=== PATIENT | female | born 2000 | race Caucasian/White ===

== ENCOUNTER 2023-10-11 23:36 | Observation (INO) | payer OTHER, SELFPAY ==
[2023-10-11 16:46] VITALS: BP 181/92
[2023-10-11 17:07] LABS: Urine Albumin Negative (Neg - Trace); Urine Bilirubin Negative (Negative); Urine Character Clear (Clear); Urine Color Yellow; Urine Glucose Negative (Negative); Urine Ketone 1+ (Negative); Urine Leukocyte Trace (Negative); Urine Nitrite Negative (Negative); Urine Occult Blood Negative (Negative); Urine Specific Gravity 1.025 (<1.030); Urine Urobilinogen Negative (Neg - 1+)
[2023-10-11 17:14] LABS: % Basophils 0.5 % (0-2); % Eosinophils 0.9 % (0-6); % Immature Granulocytes 0.3 % (0-0.5); % Lymphocytes 28.5 % (20.5-51.1); % Monocytes 4.9 % (1.7-9.3); % Neutrophils 64.9 % (42.2-75.2); Absolute Basophils 0.1 10^3/uL (0-0.2); Absolute Eosinophils 0.1 10^3/uL (0-0.7); Absolute Immature Granulocytes 0.1 10^3/uL (0-0.05); Absolute Lymphocytes 4.3 10^3/uL (1.2-3.4); Absolute Monocytes 0.7 10^3/uL (0.1-0.6); Absolute Neutrophils 9.7 10^3/uL (1.4-6.5); Hematocrit 42.9 % (37.0-47.0); Hemoglobin 14.9 g/dL (12.0-16.0); Mean Corp Hgb Conc. 34.7 g/dL (33.0-37.0); Mean Corpuscular Hgb 30.8 pg (27.0-31.0); Mean Corpuscular Volume 88.6 fL (81.0-99.0); Mean Platelet Volume 9.4 fL (7.4-10.4); Nucleated Red Blood Cells % 0 %; Platelet Count 303 10^3/uL (130-400); Red Blood Cell Count 4.84 10^6/uL (4.20-5.40); Red Cell Dist. Width 12.9 % (11.5-14.5)
[2023-10-11 17:16] LABS: Urine Red Blood Cell 0-2 /HPF (0-2); Urine Squamous Cell >30 /LPF (Few)
[2023-10-11 17:17] LABS: Urine Bacteria Few (Negative)
[2023-10-11 17:19] LABS: HCG, Serum Qualitative Screen Negative
[2023-10-11 17:21] LABS: ALT (SGPT) 17 U/L (0-35); AST (SGOT) 23 U/L (14-36); Albumin 4.8 g/dl (3.5-5.0); Alkaline Phosphatase 78 U/L (38-126); Blood Urea Nitrogen 15 mg/dl (7-17); Calcium 10.1 mg/dl (8.4-10.2); Carbon Dioxide 26 mmol/L (22-30); Chloride 100 mmol/L (98-107); Glucose 85 mg/dl (70-99); Potassium 3.9 mmol/L (3.5-5.1); Sodium 137 mmol/L (135-145); Total Bilirubin 0.6 mg/dl (0.2-1.3); Total Protein 8.1 g/dl (6.3-8.2); eGFR > 60.00
[2023-10-11 17:43] LABS: Lipase 55 U/L (23-300)
[2023-10-11 18:35] VITALS: BMI 42.8
[2023-10-11 18:38] VITALS: BP 153/115
[2023-10-11] MEDS: MOTRIN 400 MG PO (18:41)
--- NOTE | 2023-10-11 18:49 | ED.GENMED ---
History of Present Illness
General
Chief Complaint: Abdominal Pain
Source: patient
Exam Limitations: none
Time Seen by Provider: 10/11/23 17:10
Nursing documentation reviewed up to this point in time: agreed with
Travel History
Have you had any contact with someone who has COVID-19?: No
Do you have any symptoms of coronavirus? Fever > 100 degrees, chills, cough, shortness of breath, sore throat, loss of taste or smell, muscle aches, or headache?: No
History of Present Illness
History of Present Illness:
Patient presents ED secondary to persistent lower abdominal pain, which started when she stood up while she was at work this afternoon. Since then, patient states that pain has been persistent, but worse when standing up. Denies trauma. Denies
fever. Denies difficulty with urination. Denies back pain. Denies previous history of similar symptoms. Patient has an IUD in place, and as such, typically abnormal irregular menstrual cycle. Patient performed home test, which was
negative.
Review of Systems
Review of Systems
Allergies reviewed?: Yes
All Other Systems: ROS reviewed and negative except as documented in HPI and ROS
Constitutional: Reports no symptoms; Denies fever
ABD/GI: Reports abdominal pain; Denies nausea, vomiting or diarrhea
: Reports no symptoms
Musculoskeletal: Reports no symptoms
Skin: Reports no symptoms
Neurological: Reports no symptoms
Phy Exam
Physical Exam
Physical Exam:
Physical Exam
General: no apparent distress, not acutely ill. afebrile
Head: nc/at. eomi
Neck: supple. no meningeal signs.
Heart: s1/s2 regular rate and rhythm, no murmur. equal radial pulses.
Lungs: no acute respiratory distress. clear bilaterally
Abdomen: normal bowel sounds. minimal LLQ tenderness to palpation.
Neuro: alert and oriented. no focal neurological deficits
Skin: no rash
Psychiatric: well kept. interactive and cooperative
Extremities: no edema. no calf tenderness
Course
Orders/Labs/Results
Orders:
Orders
10/11/23 16:50
Test Result ONCE
10/11/23 16:57
Complete Blood Count/With Diff Urgent
Comprehensive Metabolic Panel Urgent
HCG, Serum Qualitative Screen Urgent
Lipase Urgent
Urinalysis Reflex To Culture Urgent
Date Specimen was Collected: 10/11/23
Time Specimen was Collected: 16:50
Urine Microscopic Reflex Cult Urgent
Chlamydia/GC by PCR Urgent
HERNANDO Source: U
Specimen Description:
Source:: URINE
Date Specimen was Collected: 10/11/23
Time Specimen was Collected: 16:50
Comment: Add on per Fidel Noh
10/11/23 18:05
US Pelvis W Transvag Combined Urgent
Comment:
Reason For Exam: left lower quadrant pain
10/11/23 18:11
Ibuprofen [Motrin] 400 mg PO NOW STA
10/11/23 20:45
Acetaminophen [Tylenol] 1,000 mg PO NOW STA
10/11/23 20:46
Add On - Microbiology Urgent
Tests Added?: urine GC/CT
Acetaminophen [Tylenol] 1,000 mg .ROUTE .STK-MED ONE
10/11/23 22:34
CefTRIAXone [Rocephin] 1,000 mg IV NOW STA
10/11/23 22:35
MetroNIDAZOLE 500 MG/100 ML [Flagyl 500 mg] 100 ml IV NOW
10/11/23 22:44
Chlamydia/GC by PCR Urgent
HERNANDO Source: Endo-Cervical
Specimen Description:
Source:: CERVIX
Date Specimen was Collected: 10/11/23
Time Specimen was Collected: 22:37
Wound Culture [Wound/Abscess/Other Culture] Urgent
HERNANDO Source: Skin Scraping
Specimen Description:
Date Specimen was Collected: 10/11/23
Time Specimen was Collected: 22:37
10/11/23 23:03
Doxycycline Hyclate [Vibramycin] 100 mg 0.9% Sodium Chloride 250 ml [Nss] 250 ml IV NOW
10/11/23 23:15
HYDROmorphone [Dilaudid] 1 mg .ROUTE .STK-MED ONE
HYDROmorphone [Dilaudid] 1 mg IV NOW STA
Abnormal Lab Results
10/11/23
16:57
WBC 15.0 H 10^3/uL
(4.8-10.8)
Abs Immat Gran (auto) 0.1 H 10^3/uL
(0-0.05)
Absolute Neuts (auto) 9.7 H 10^3/uL
(1.4-6.5)
Absolute Lymphs (auto) 4.3 H 10^3/uL
(1.2-3.4)
Absolute Monos (auto) 0.7 H 10^3/uL
(0.1-0.6)
Urine Ketones 1+ A
(Negative)
Leukocyte Esterase Rfl Trace A
(Negative)
Urine Bacteria (Reflex) Few A
(Negative)
10/11/23 16:57
10/11/23 16:57
Vital Signs
Initial and Last Documented VS:
Initial Vital Signs
Temp Pulse Resp BP Pulse Ox
98.2 F 95 18 181/92 98
10/11/23 16:46 10/11/23 16:46 10/11/23 16:46 10/11/23 16:46 10/11/23 16:46
Last Documented Vital Signs
Temp Pulse Resp BP Pulse Ox
98.0 F 78 18 138/86 96
10/12/23 04:00 10/12/23 04:00 10/12/23 04:00 10/12/23 04:00 10/11/23 20:51
MDM/Problems Addressed
MDM/Problems Addressed:
Pelvic US report reviewed and discussed with patient.
Pelvic exam: (Violette RN, at bedside) no vaginal discharge, no adnexal tenderness.
Pt reports having tested positive for chlamydia in November 2022, treated, although patient had no symptoms. Patient states that she gets tested for STDs every year routinely.
Pt evaluated by (non morse intercept technician) - will need further evaluation for potential TOA.
*Critical Care Note
Total Time (30-74mins, 75-104mins- exclusive of procedures): Not Applicable
ED Attending Note
-
Portions of this chart may have been created with voice recognition software.� Occasional wrong word or��sound alike� substitutions may have occurred due to the inherent limitations of voice recognition software.
Discharge Plan
Departure
Patient Disposition: Admit
Presentation/result/management discussed w/ accepting MD/DO:
Discharge Problem:
TOA (tubo-ovarian abscess)
Interventions
Interventions:
*Risk Screen - Suicide Last Done: 10/12/23 01:15
*General Assessment Last Done: 10/11/23 16:46
*Neglect/Abuse Screening Last Done: 10/11/23 16:46
ED- Fall Risk Assessment Last Done: 10/11/23 18:35
*ED COVID-19 Vaccine History Last Done: 10/12/23 01:15
*Nursing Disposition Last Done: 10/12/23 00:56
VN-Eaaotd-Gricbxaxch Assessment Last Done: 10/11/23 18:35
Discharge Date and Time
Discharge Date/Time: 10/12/23 00:57
[2023-10-11 20:14] VITALS: BP 145/92
[2023-10-11] MEDS: TYLENOL 1000 MG PO (20:48)
[2023-10-11 22:47] VITALS: BP 150/105
[2023-10-11] MEDS: FLAGYL 500 MG 100 IV (23:03)
[2023-10-11] MEDS: ROCEPHIN 1000 MG IV (23:03)
[2023-10-11] MEDS: DILAUDID 1 MG IV (23:16)
[2023-10-12] VITALS (9 sets, daily range): BP systolic 127–160; BP diastolic 85–102; BMI 42.6
--- NOTE | 2023-10-12 00:07 | HPS.HSE ---
Addendum entered and electronically signed by Sharon Kebede, DO 10/17/23 14:21:
Home meds and allergies inadvertently excluded from original H&P.
Home meds: Wellbutrin 450mg daily
NKDA
Anna Kebede, DO
Addendum entered and electronically signed by Sharon Kebede, DO 10/12/23 01:36:
Hospitalist consult placed for mgmt of untreated CHTN.
Original Note:
Family Physician
-
Family Physician: NOT KNOW UNKNOWN - PT DOES
Chief Complaint
-
lower abdominal pain
History of Present Illness
23yo , LMP [id number], using Mirena IUD for BC, presents to the ER tonight with lower abdominal pain that started earlier while she was at work and became progressively more intense throughout the day. Pain is across the whole lower abdomen,
but worse in the LLQ. It is not so bad when she is sitting still, but is constant when she is moving around. Tylenol and Motrin in the ER haven't helped much. Pt denies f/c, n/v, d/c, abnormal vaginal discharge, abnormal vaginal bleeding (menses
are irregular with Mirena, has had it in place for 5yrs), or urinary sx. Last normal BM was earlier today. She had Chlamydia in November 2022, which was treated.
Pelvic US in the ER showed a left-sided 7cm x 4cm possible hydrosalpinx vs. hematosalpinx vs. other tubular fluid collection adjacent to the left ovary. Labs significant for Leukocytosis.
Medical History
Past Medical History
Past Medical History: Reports HTN (no meds) and Psychiatric (depression/anxiety)
Additional Past Medical History:
Obesity
Past Surgical History: Reports None
Social History
Tobacco: Non-smoker
Alcohol: None
Drug: None
Personal: Single
Employment: Employed
Family History
Family History: Not pertinent
Allergies / Home Medications
Allergies reflects when Allergies were last updated in [employer].
Home Medications with original date entered in [employer]
Allergy/Medication List:
NKDA
Review of Systems
-
History Source: Patient
A 12 point ROS was completed and negative except as noted: Yes
Constitutional: Reports No Symptoms
Respiratory: Reports No Symptoms
Cardiac: Reports No Symptoms
Abdomen/GI: Reports See HPI
: Reports See HPI
Musculoskeletal: Reports No Symptoms
Skin: Reports No Symptoms
Neurological: Reports No Symptoms
Hematologic/Lymphatic: Reports No Symptoms
Psych: Reports Depression (stable on Wellbutrin) and Anxiety (stable on wellbutrin)
Physical Exam
Vital Signs
Vital Signs
Temp Pulse Resp BP Pulse Ox
98.2 F 92 18 150/105 96
10/11/23 16:46 10/11/23 20:15 10/11/23 16:46 10/11/23 22:47 10/11/23 20:51
Physical Exam
General: Well Developed, Well Nourished, No Apparent Distress, Comfortable, Conversant and Obese
HEENT: NormoCephalic
Respiratory: Non Labored Respirations
Breast: Deferred by me
GI: Soft, Non Distended, Normal Bowel Sounds and Tender (+TTP in the LLQ, no r/g)
Rectal: Deferred by Provider
Genito-urinary: Vaginal Discharge ( SSE: NEFG, normal vagina, No blood in vault. scant yellow/white cervical discharge- GC/CT swab obtained. Bimanual: No CMT, uterine or rt adnexal TTP. ?mild left adnexal TTP.) and Other (IUD strings visualized at
the os. Pt was verbally consented for removal of the IUD-- strings were grasped with ring forceps and gentle traction was applied to remove the IUD intact. IUD swabbed for cultures and sent for gross specimen. )
Musculoskeletal: No Edema
Skin: Warm, Dry and Lesions (no ulcers or lesions)
Neuro: Awake, Alert and Oriented
Psych: Calm
Laboratory Results
-
10/11/23 16:57
CBC 15> 14.9 / 42.9 <303K
HCG NEG
Laboratory Results
Total Bilirubin 0.6 mg/dl (0.2-1.3) 10/11/23 16:57
AST 23 U/L (14-36) 10/11/23 16:57
ALT 17 U/L (0-35) 10/11/23 16:57
Alkaline Phosphatase 78 U/L (38-126) 10/11/23 16:57
Lipase 55 U/L (23-300) 10/11/23 16:57
Data Reviewed
-
Critical Care Time (in minutes): 60
Ultrasound: Image Personally Visualized and interpreted, Report Reviewed by me, Discussed with Physician, Discussed with Patient, Discussed with Family and Other
Lab Data: Labs Reviewed by me, Discussed with Physician, Discussed with Patient and Discussed with Family
Impression/Plan
-
IMPRESSION: 23yo with acute onset LLQ pain.
Cannot r/o TOA based on [id number] complex fluid collection in left adnexal region, LLQ pain/TTP and elevated WBC.
Presentation is atypical, however, because she is afebrile and does not have classic CMT, uterine TTP or even significant left adnexal TTP on internal exam. US report does not include TOA or abscess in the differential, but based on patient's h/o
Chlamydia and IUD in place, she is at a higher risk for PID/TOA. It is also possible that the US findings represents a pre-existing hematosalpinx or hydrosalpinx from prior pelvic infection and is not an acute abscess. We discussed erring on the
side of caution and treating with IV antibiotics for at least the next 24hrs, and then likely transitioning to PO antibiotics. We also discussed the possibility of needing surgical removal of the tube if pain persists/worsens and/or if fevers
develop or WBC continues to rise despite IV antibiotics.
Mirena IUD was also removed in light of possible pelvic infection. It was in place for 5yrs anyway so patient was planning on having it replaced.
PLAN:
-Admit to med/surg floor
-IV antibiotics: IV Ceftriaxone 1gm q24hrs, Doxycycline 100mg q12hr, Metronidazole 500mg q12hr (all started in the ER)
-CBC w/ diff in AM
-GC/CT PCR swab pending. If positive, partner(s) will need treatment, as well.
-IUD cultures pending
-Toradol, Tylenol prn pain
-Ambulation encouraged
-Reg diet
-ANTONIA hose for VTE prophylaxis
-Pt will need control readdressed prior to discharge, or at close interval follow-up
I discussed the assessment and diagnosis with the patient's mother on the phone, per the patient's request, and answered all questions to her satisfaction.
Imaging Data
-
Diagnostic Imaging Report
SignedOrder #:[id number]
Exams:� US Pelvis W Transvag Combined
CPT: 09762, 17159
PROCEDURE: US Pelvis W Transvag Combined
CLINICAL INDICATION: Left lower quadrant abdominal and pelvic pain. Nausea. Last menstrual period began 07/29/2023.
TECHNIQUE: A transabdominal and transvaginal ultrasound examination of the pelvis was performed.
COMPARISON: None available.
FINDINGS:
UTERUS: The uterus measures 9.0 x 3.0 x 4.2 cm in size. The endometrium measures 4.7 mm in thickness on the transvaginal images. There is an intrauterine device (IUD) in the endometrial canal. There is a small amount of fluid in the endocervical
canal. There is no sonographic evidence for uterine mass.
RIGHT OVARY: The right ovary measures 4.0 x 3.5 x 4.0 cm in size. There is a 2.5 x 2.2 x 3.1 cm simple cyst in the right ovary. There is blood flow demonstrated within the right ovary on color duplex evaluation and spectral duplex waveform analysis.
LEFT OVARY: The left ovary measures 3.5 x 2.2 x 5.0 cm in size and is only seen on the transabdominal images. There are small follicles in the left ovary. There is blood flow demonstrated within the left ovary on color duplex evaluation and spectral
duplex waveform analysis.
There is a tubular-shaped fluid collection in the left adnexal region measuring 7.3 x 4.0 x 7.0 cm in size. The fluid contains internal echoes suggesting complexity (possibly blood products). This appears to be separate from the left ovary.
IMPRESSION:
1. � 7.3 cm tubular-shaped complex fluid collection in the left adnexa region which appears separate from the left ovary. Diagnostic possibilities are (1) complex hemorrhagic fluid from a ruptured ovarian cyst, (2) a hydrosalpinx or hematosalpinx,
or (3) peritoneal fluid of other etiology.
2. � 3.1 cm simple cyst in the right ovary.
3. � IUD in the endometrial canal.
Electronically signed by Spike Ramsey MD 10/11/2023 8:43 PM
Dictated By: Spike Ramsey MD.
Dictated Date & Time: 10/11/232025
Signed/Co-Signer By: Spike Ramsey MD /
Signed/Co-Signer Date & Time: 10/11/232042 /
Transcribed by: Spike Ramsey
Printed Date and Time:��@
cc:
[2023-10-12] MEDS: VIBRAMYCIN 260 MG IV ×2 (01:37→12:06)
--- NOTE | 2023-10-12 01:41 | CON.HOSP ---
Family Physician
-
Family Physician: NOT KNOW UNKNOWN - PT DOES
Chief Complaint
-
OBGYN consultt to hospitalist for HTN control
History of Present Illness
23F No significant PMHx pw acute lower abdominal pain at work. it is unremeitting pain worse with standing.
ICD in place.
Self test home pregnacy test was NEG.
Medical History
Past Medical History
Past Medical History: Reports Other (vaguse HX HTN )
Past Surgical History: Reports None
Social History
Tobacco: Non-smoker
Alcohol: None
Drug: None
Personal: Single
Family History
Family History: Hypertension (runs in the family. Both parents has HTN ) and Other
Allergies / Home Medications
Allergies reflects when Allergies were last updated in [employer].
Home Medications with original date entered in [employer]
Allergy/Medication List:
Allergies
Allergy/AdvReac Type Severity Reaction Status Date / Time
No Known Allergies Allergy Verified 10/11/23 16:46
Home Medications
bupropion HCl 150 mg 24 hr tablet, extended release 450 mg PO DAILY 10/11/23
Review of Systems
-
Constitutional: Reports No Symptoms
EENT: Reports No Symptoms
Respiratory: Reports No Symptoms
Cardiac: Reports No Symptoms
: Reports No Symptoms
Musculoskeletal: Reports No Symptoms
Skin: Reports No Symptoms
Neurological: Reports No Symptoms
Endocrine: Reports No Symptoms
Hematologic/Lymphatic: Reports No Symptoms
Psych: Reports No Symptoms
Physical Exam
Vital Signs
Vital Signs
Temp Pulse Resp BP Pulse Ox
97.8 F 94 18 144/99 96
10/12/23 01:36 10/12/23 01:36 10/12/23 01:36 10/12/23 01:36 10/11/23 20:51
Physical Exam
General: Other
Laboratory Results
-
Laboratory Results
10/12/23 06:00
10/11/23 16:57
Total Bilirubin 0.6 mg/dl (0.2-1.3) 10/11/23 16:57
AST 23 U/L (14-36) 10/11/23 16:57
ALT 17 U/L (0-35) 10/11/23 16:57
Alkaline Phosphatase 78 U/L (38-126) 10/11/23 16:57
Lipase 55 U/L (23-300) 10/11/23 16:57
Data Reviewed
-
Ultrasound: Report Reviewed by Me
Lab Data: Labs Reviewed
Impression / Plan
-
Data
WCC 15
Unremarkable CMP
NEG UA
TV US
1. 7.3 cm tubular-shaped complex fluid collection in the left adnexa region which appears separate from the left ovary. Diagnostic possibilities are (1) complex hemorrhagic fluid from a ruptured ovarian cyst, (2) a hydrosalpinx or hematosalpinx,
or (3) peritoneal fluid of other etiology.
2. 3.1 cm simple cyst in the right ovary.
3. IUD in the endometrial canal.
Last hospitalist admission:
ASSESSMENT & PLAN
Uncontrol BP in hospital setting
Prior HX elevated BP but not on any regular Med and not f/u with [facility]
Strong FHx HTN ( Mother , father )
Class III Obesity
Normal Cr
- labile between 150/100 - 180/90
- add IV Hydralazine 10mg q4- 6h PRN for SBP > 165 DBP > 100 ( case dw Gynae )
- Observe BP to consider anti HTN
- Hospitalist will f/u for BP contol in AM
Lt adnexa tubular fluid collection indepedent of Lt overy
DDX: 1) complex hemorrhagic fluid from a ruptured ovarian cyst, (2) a hydrosalpinx or hematosalpinx
- Plan per [facility] service
Class III obesity due to calorie excess
--- NOTE | 2023-10-12 01:46 | W.PN.UPDATE ---
Update Note
Progress Note Update
consulted hospitalist for mgmt of untreated CHTN. Spoke to hospitalist, Dr. Cornelius, who said that hospitalist will see pt in the AM. He asked that I order Hydralazine 10mg IV prn q4hr for systolic >160 or diastolic >110 in the meantime; Ordered.
changed VS frequency to q4hr. Will continue to monitor.
Shayne, DO
[2023-10-12] MEDS: TORADOL 30 MG IV ×2 (02:47→09:46)
[2023-10-12] MEDS: FLAGYL 500 MG 100 IV ×2 (08:48→19:58)
[2023-10-12] MEDS: WELLBUTRIN XL (24 hour extended release) 450 MG PO (08:49)
--- NOTE | 2023-10-12 11:31 | W.PN.OBG.DWH ---
Today's Communication / Plan
-
Continue with antibiotics
Repeat CBC in AM
Increase diet
Will switch to IBU from Toradol
Assessment/Plan
-
A/P LEFT adnexal mass, possible TOA vs hematosalpinx-stable, with improved GI symptoms. Has only been on antibiotics less than 12 hours, will repeat CBC and possibly imaging tomorrow. Patient aware will likely be switched to oral antibiotics if
remains afebrile for next 24 hours and then on extended course of oral antibiotics.
Subjective Data
-
Pt feels 'about same', not worse. Wants to eat. No nausea. Is happy GC/Chlamydia testing negative.
Objective Data
-
Laboratory Results
10/12/23 06:00
10/11/23 16:57
Vital Signs
Temp Pulse Resp BP Pulse Ox
97.7 F 83 18 127/90 96
10/12/23 09:12 10/12/23 09:12 10/12/23 09:12 10/12/23 09:12 10/11/23 20:51
Abdomen-soft, nondistended, nontender, good bowel sounds, no rebound or guarding
Extremities-no calf pain
--- NOTE | 2023-10-12 12:23 | W.PN.UPDATE ---
Update Note
Progress Note Update
Nicotine patch ordered per patient request
[2023-10-12] MEDS: TYLENOL 650 MG PO ×2 (13:11→19:57)
[2023-10-12] MEDS: NICODERM TRANSDERMAL 7 MG TRANSDERM (13:22)
[2023-10-12 14:00] LABS: Glycohemoglobin (HgbA1c) 5.2 % (4.0-5.6)
[2023-10-12 14:26] LABS: TSH 1.92 uIU/ml (0.47-4.68)
--- NOTE | 2023-10-12 14:44 | CM ---
CM met with pt at bedside
Pt lives with her mother in an apartment. Apartment is one floor
Pt denies past HH/SNF/Rehab
Denies DME in home
PCP - DEDICATED OWNER OPERATOR named Mimi ([phone])
Pharm- [facility]
Will have ride home at d/c
Discussed obs letter
Anticipate home no needs
--- NOTE | 2023-10-12 14:49 | W.PN.HOSP.TC ---
Today's Communication/Plan
-
See plan
Assessment / Plan
Assessment / Plan
Impression:
Presented with lower quadrant abdominal pain
Left adnexal mass with differential diagnosis tubo-ovarian abscess versus hematosalpinx.
Leukocytosis.
Hypertension, elevated BP in the settings of pain.
Obesity with BMI of 43.
Tobacco use disorder.
Plan:
Left adnexal mass with concern for TOA. Leukocytosis, although afebrile, does not appear toxic with relatively benign abdominal examination
Initiated empiric antibiotics pending cultures
Neisseria and chlamydia PCR negative
Accelerated hypertension with noted SBP at 180 upon admission at that time patient is in pain.
Currently normotensive.
Not on any antihypertensive regimen prior to admission. BP has been surveyed and followed by [facility]
Continue IV hydralazine as needed as ordered monitor blood pressure trend while hospitalized.
Obesity with BMI 42
Hemoglobin A1c 5.2
TSH within normal limits
Anticipated Discharge: 24 - 48 hours
Subjective/Interval History
-
Date of Service: October 12, 2023
Objective Data
-
Vital Signs:
Vital Signs
Temp Pulse Resp BP Pulse Ox
98.1 F 82 18 132/85 96
10/12/23 12:34 10/12/23 12:34 10/12/23 12:34 10/12/23 12:34 10/11/23 20:51
Physical Exam
-
General: Well Developed and No Apparent Distress
HEENT: Normocephalic, Atraumatic and Moist Mucous Membranes
Respiratory: Clear to Auscultation
Cardiac: Regular Rhythm and S1/S2; Negative Murmur, Rub or Gallop
GI: Soft, Nontender, Nondistended and Normal Bowel Sounds; Negative Organomegaly
Rectal: Deferred by Provider
Musculoskeletal: No Clubbing, No Cyanosis and No Edema
Skin: Negative Rash
Neuro: Nonfocal/Grossly Intact
[2023-10-12] MEDS: MOTRIN 600 MG PO ×2 (15:26→21:45)
--- NOTE | 2023-10-12 17:27 | PTCARENOTE ---
Received pt at 1500 bp 151/96 15minutes later 144/89. pt states in pain will give motrin.Hospitalist called states will not treat blood pressure if pt in pain, 1715 pt state pain better bp 152/100. Dr Lopez called (to see which hospitalist to
call) aware of above and states do not call hospitalist will not treat yet.
[2023-10-12] MEDS: ROCEPHIN 1000 MG IV (21:45)
[2023-10-12] MEDS: STERILE WATER FOR INJECTION 10 ML IV (21:46)
[2023-10-13] VITALS: BP 144/98
[2023-10-13] MEDS: VIBRAMYCIN 260 MG IV (00:13)
--- NOTE | 2023-10-13 01:29 | PTCARENOTE ---
Dr Lopez made aware of patients blood pressures at 10/12/2023 2100, as she was present in a delivery. As per Dr Lopez, we are trending blood pressures and cardiology will see patient again in the am 10/13/2023.
[2023-10-13 04:00] VITALS: BP 137/94
[2023-10-13] MEDS: MOTRIN 600 MG PO ×2 (04:48→14:04)
[2023-10-13] MEDS: TYLENOL 650 MG PO ×2 (04:48→14:05)
[2023-10-13 05:15] LABS: % Basophils 0.7 % (0-2); % Eosinophils 2.3 % (0-6); % Immature Granulocytes 0.2 % (0-0.5); % Lymphocytes 39.8 % (20.5-51.1); % Monocytes 5.3 % (1.7-9.3); % Neutrophils 51.7 % (42.2-75.2); Absolute Basophils 0.1 10^3/uL (0-0.2); Absolute Eosinophils 0.3 10^3/uL (0-0.7); Absolute Lymphocytes 4.4 10^3/uL (1.2-3.4); Absolute Monocytes 0.6 10^3/uL (0.1-0.6); Absolute Neutrophils 5.7 10^3/uL (1.4-6.5); Hematocrit 37.1 % (37.0-47.0); Hemoglobin 12.3 g/dL (12.0-16.0); Mean Corp Hgb Conc. 33.2 g/dL (33.0-37.0); Mean Corpuscular Volume 90.5 fL (81.0-99.0); Mean Platelet Volume 9.7 fL (7.4-10.4); Nucleated Red Blood Cells % 0 %; Platelet Count 249 10^3/uL (130-400); White Blood Cell Count 11.1 10^3/uL (4.8-10.8)
[2023-10-13 07:45] VITALS: BP 142/103
[2023-10-13] MEDS: WELLBUTRIN XL (24 hour extended release) 450 MG PO (08:24)
[2023-10-13] MEDS: NICODERM TRANSDERMAL 7 MG TRANSDERM (08:24)
[2023-10-13] MEDS: FLAGYL 500 MG 100 IV (08:27)
[2023-10-13] MEDS: ULTRAM 25 MG PO (11:11)
--- NOTE | 2023-10-13 12:12 | W.PN.OBG.DWH ---
Today's Communication / Plan
-
Tramadol x1 dose for pain, otherwise continue with motrin/tylenol
continue triple antibiotics as ordered
Pelvic MRI today
regular diet and OOB as tolerated
vaginal cultures pending
Assessment/Plan
-
23yo G0 HD#2 with Left adnexal complex Mass TOA vs Hematosalpinx
1. abdominal Pain/Possible TOA: patient is currently on triple Abx Ancef, Doxycycline and Flagyl. Continue this course for now. i did change doxy to PO since patient is able to tolerate food.
-Pelvic MRI ordered after d/w Radiologist, in an attempt to better differentiate this pelvic collection. If suspicion is high for a TOA then I discussed that I will contact IR about possible drainage given its size.
-Patient has remained afberile throughout her hospitalization and leukocytosis has resolved
-patient feels that she is having a lot of pain not controlled with tylenol/motrin. She appears visibly comfortable and has only mild ttp on exam. one time dose of tramadol ordered.
2. HTN- likely patient with CHTN, Hospitalist consulted to help with management. No oral anti-hypertensives recommended at this time
3. Regular diet
4. OOB as tolerated
5. continue home medications
Subjective Data
-
Patient states she continues to feel a lot of pain. motrin/tylenol not helping. She has been able to ambulate, void, is tolerating a regular diet. No emesis. Has not had any fevers
Objective Data
-
Laboratory Results
10/13/23 04:38
10/11/23 16:57
Vital Signs
Temp Pulse Resp BP Pulse Ox
98.4 F 88 20 142/103 96
10/13/23 07:45 10/13/23 07:45 10/13/23 07:45 10/13/23 07:45 10/11/23 20:51
Gen: nad aaox3
Abd: soft with mild ttp in the lower abdomen, no r/g
GC-Ct: Neg
Vaginal Culture: pending
[2023-10-13] MEDS: VIBRAMYCIN 100 MG PO (12:54)
--- NOTE | 2023-10-13 13:05 | CM ---
Case Management following for d/c planning
Remains on IV antibiotics and receiving pain medication
CM will follow for d/c needs
Plan - anticipate home no needs
[2023-10-13 15:03] VITALS: BP 155/108
--- NOTE | 2023-10-13 15:51 | W.PN.UPDATE ---
Update Note
Progress Note Update
Patient hypertension most likely pain driven
Ongoing workup for left ovarian paralysis
Remains on IV antibiotics covering PID.
Continue current analgesic regimen.
No urgent indication for oral antihypertensive therapy.
Hospitalist service will sign off please call if questions.
[2023-10-13 16:15] VITALS: BP 152/100
--- NOTE | 2023-10-13 16:48 | W.PN.UPDATE ---
Update Note
Progress Note Update
Spoke with patient this afternoon after her MRI. She feels okay, no severe pain no new f/c/n/v. Currently waiting for dinner.
MRI:1. 4.7cm complex cyst in the left ovary which has a thick enhancing wall and contains mild enhancing mural nodularity. Diagnostic possibilities are benign non neoplastic cyst, benign cystic epithelial ovarian tumor, a TOA though less likely in
the absence of other signs of PID. 2. 3cm endometrioma or hemorrhagic cyst on right ovary
After the MRI I discussed report with Dr. Ramsey, his overall impression is that this is a benign process and NOT an infectious etiology. Patient without strong clinical suspicion for PID so at this point I recommend we stop Abx therapy. Given
that she has no severe pain and tolerating normal PO intake, she can safely be discharged home now. Given the complex nature of the cyst, I advised that she needs close interval follow up. Recommend repeat U/S in 2 months to reevaluate. Advised if
cysts persists/grows then we can discuss if surgical intervention would be warranted at that time, but right now I do not believe it is indicated.
== END 2023-10-13 18:30 | disposition home or self-care (01) ==
LOC: LDRP 23:36
PROVIDERS: Obstetrics & Gynecology; ADMITTING PHYSICIAN Obstetrics & Gynecology; EMERGENCY PHYSICIAN Emergency Medicine; OTHER PHYSICIAN Internal Medicine
DX: R10.32 Left lower quadrant pain (principal); N83.202 Unspecified ovarian cyst, left side; N83.201 Unspecified ovarian cyst, right side; R11.0 Nausea; I10 Essential (primary) hypertension; D72.829 Elevated white blood cell count, unspecified; E66.01 Morbid (severe) obesity due to excess calories; Z68.41 Body mass index [BMI] 40.0-44.9, adult; Z82.49 Family history of ischemic heart disease and other diseases of the circulatory system; Z97.5 Presence of (intrauterine) contraceptive device; Z72.0 Tobacco use
CPT/HCPCS: 96375; 72197; 76830; 76856; 80053; 81003; 81015; 83036; 83690; 84443; 84703; 85025; 87070; 87077; 87147; 87186; 87205; 87491; 87591; 96365; 96366; 99284; 99406; A9575